=== PATIENT | female | born 1985 | race Asian ===

== ENCOUNTER 2020-06-30 21:36 | Emergency (ER) | payer OTHER ==
[2020-06-30 21:41] VITALS: BP 118/82; PULSE 79; TEMP 98; BMI 21.1
--- NOTE | 2020-06-30 22:15 | PDOC ---
History of Present Illness - General Chief Complaint: Pain Stated Complaint: RT BREAST PAIN Time Seen by Provider: 06/30/20 21:51 History Source: Patient Exam Limitations: No Limitations - History of Present Illness Initial Comments: 06/30/20 22:02 HISTORY OF PRESENT ILLNESS: 34-year-old woman is currently 6 weeks who presents emergency department for evaluation of right breast pain starting at 3:00 this afternoon. Patient reports she was breast-feeding and when she finished she noticed the pain around her breast. She has had continued pain since that time. She reports she has milky discharge from her nipple consistent with her . No recent travel or sick contacts. PAST MEDICAL HISTORY: Denies past medical history SURGICAL HISTORY: Denies ALLERGIES: No known drug allergies REVIEW OF SYSTEMS General/Constitutional: Denies fever or chills. Denies weakness, weight change. HEENT: Denies change in vision. Denies ear pain or discharge. Denies sore throat. Cardiovascular: Denies chest pain or shortness of breath. Respiratory: Denies cough, wheezing, or hemoptysis. Gastrointestinal: Denies nausea, vomiting, diarrhea or constipation. Denies rect al bleeding. Genitourinary: Denies dysuria, frequency, or change in urination. Musculoskeletal: Denies joint or muscle swelling or pain. Denies neck or back pain. Skin and breasts: See HPI Neurologic: Denies headache, vertigo, loss of consciousness, or loss of sensation. Psychiatric: Denies depression or anxiety. Endocrine: Denies increased thirst. Denies abnormal weight change. Hematologic/Lymphatic: Denies anemia, easy bleeding, or history of blood clots. Allergic/Immunologic: Denies hives or skin allergy. Denies latex allergy. PHYSICAL EXAM General Appearance: Well-appearing, appropriately dressed. No apparent distress, no intoxication. Lymphatic: No adenopathy, tenderness. Musculoskeletal/Extremities: Normal inspection. FROM of all extremities, normal capillary refill. Pelvis Stable. No CVA tenderness. No tenderness to extremities, pedal edema, swelling, erythema or deformity. Integumentary: Right breast mildly erythematous around the areola. Milky discharge from the nipple consistent with breast milk. Milk filled pockets present circumferentially around the breast. Tenderness noted around the nipple. Past History - Medical History Allergies/Adverse Reactions: Allergies Allergy/AdvReac Type Severity Reaction Status Date / Time No Known Allergies Allergy Verified 06/30/20 21:41 Home Medications: Ambulatory Orders Naproxen [Naprosyn -] 500 mg PO BID PRN #14 tablet 04/21/15 Cephalexin Monohydrate [Keflex -] 500 mg PO Q6H #40 capsule 06/30/20 COPD: No - Reproductive History Is Patient Now?: No - Immunization History Immunization Up to Date: No - Psycho-Social/Smoking History Smoking History: Never smoked Have you smoked in the past 12 months: No *Physical Exam - Vital Signs Last Vital Signs Temp Pulse Resp BP Pulse Ox 98 F 79 18 118/82 100 06/30/20 21:38 06/30/20 21:38 06/30/20 21:38 06/30/20 21:38 06/30/20 21:38 Medical Decision Making - Medical Decision Making 06/30/20 22:15 A/P: 34-year-old woman with right breast pain starting at approximately 3:00 today Mild erythema presents to the right areola.mild induration present. No fluctuance noted. Only breast milk discharge from nipple. Likely early mastitis given physical exam and breast-feeding. Will treat patient with Keflex 500 mg 4 times daily for the next 10 days. Patient has been instructed to follow-up with her [facility] for repeat evaluation. I discussed the physical exam findings, ancillary test results and final diagnoses with the patient. I answered all of the patient's questions. The patient was satisfied with the care received and felt comfortable with the discharge plan and treatment plan. The patient will call their primary care physician within 24 hours to arrange follow-up and will return to the Emergency Department with any new, persistent or worsening symptoms. Portions of this note have been documented using voice recognition software. As a result, errors may occur in the kaitara taraka process. Effort has been made to correct all grammatical and kaitara taraka error, but some may have been missed which may produce sporadic inaccurate kaitara taraka or nonsensical phrases. Discharge - Discharge Information Problems reviewed: Yes Clinical Impression/Diagnosis: Mastitis Condition: Stable Disposition: HOME - Admission No - Additional Discharge Information Prescriptions: Cephalexin Monohydrate [Keflex -] 500 mg PO Q6H #40 capsule - Follow up/Referral - Patient Discharge Instructions Patient Printed Discharge Instructions: DI for Mastitis Additional Instructions: Take Keflex 500 mg 4 times a day for the next 10 days Finish all antibiotics even if you feel better. Apply warm compresses to affected areas as needed. Return to emergency department for any worsening pain, drainage, or any other concerns. Thank you very much for choosing us to provide your emergent health care needs. - Post Discharge Activity
== END 2020-06-30 22:15 | disposition home or self-care (01) ==
LOC: JERFT 21:36 → JER 21:36 → JERFT 22:15
DX: N61.0 Mastitis without abscess (principal)
CPT/HCPCS: 99283-25

== ENCOUNTER 2021-01-05 04:31 | Emergency (ER) | payer OTHER ==
[2021-01-05 04:51] VITALS: BP 121/69; PULSE 82; TEMP 98.9; BMI 19.3
== END 2021-01-05 06:23 | disposition home or self-care (01) ==
LOC: JER 04:31
DX: Z11.52 Encounter for screening for COVID-19 (principal)
CPT/HCPCS: 99284-25; C9803; U0003